=== PATIENT | female | born 1970 | race Caucasian/White ===

== ENCOUNTER 2018-10-27 16:48 | Inpatient (IN) | payer OTHER ==
[2018-10-27 19:10] VITALS: BMI 32.8
--- NOTE | 2018-10-27 21:57 | HP ---
CIWA Score - Admission Criteria [facility] Guidelines: Admission for Medically Managed Detox: Requires at least one of the followin. CIWA greater than 12 2. Seizures within the past 24 hours 3. Delirium tremens within the past 24 hours 4. Hallucinations within the past 24 hours 5. Acute intervention needed for co occurring medical disorder 6. Acute intervention needed for co occurring psychiatric disorder 7. Severe withdrawal that cannot be handled at a lower level of care (continued vomiting, continued diarrhea, abnormal vital signs) requiring intravenous medication and/or fluids 8. Admission ROS [facility] - [facility] Chief Complaint: SEEKING INPATIENT REHAB SERVICES TO MAINTAIN SOBRIETY History of Present Illness: 48 Y.O. FEMALE WITH HX/O ALCOHOLISM HERE FOR INAPTIENT REHAB SERVICES. tHIS IS CLIENTS FIRST ADMISSION HERE. SHE ALSO REPORTS THIS HER FIRST INAPTIENT DRUG TXMENT. SHE IS REFERRED BY HER MENTAL HEALTH COUNSELOR FOR BINGE DRINKING. STATES LAST DRINK WAS 4 DAYS AGO AFTER A 5 DAY BINGE DRINKING PERIOD. SHE ATTENDS AA AND REPORTS SHE BINGE DRINKS 3 TO 4 DAY STRAIGHT ON A MONTHLY BASIS. SHE DENIES HX/O SI/HI, AVH, SEIZURE D/O. PMHX- DEPRESSED, DM, GASTRIC BYPASS 2013, Exam Limitations: No Limitations - Ebola screening Have you traveled outside of the country in the last 21 days: No Have you had contact with anyone from an Ebola affected area: No Have you been sick,other than usual withdrawal symptoms: No Do you have a fever: No - Review of Systems Constitutional: Changes in sleep EENT: reports: No Symptoms Reported Respiratory: reports: No Symptoms reported Cardiac: reports: No Symptoms Reported GI: reports: Nausea, Poor Appetite, Poor Fluid Intake : reports: No Symptoms Reported Musculoskeletal: reports: No Symptoms Reported Integumentary: reports: No Symptoms Reported Neuro: reports: Headache Endocrine: reports: Other (HX/O DM) Hematology: reports: Anemia Psychiatric: reports: Orientated x3, Anxious, Depressed Other Systems: Reviewed and Negative Patient History - Patient Medical History Hx Anemia: Yes Hx Asthma: No Hx Chronic Obstructive Pulmonary Disease (COPD): No Hx Cancer: No Hx Cardiac Disorders: No Hx Congestive Heart Failure: No Hx Hypertension: No Hx Hypercholesterolemia: No Hx Pacemaker: No HX Cerebrovascular Accident: No Hx Seizures: No Hx Dementia: No Hx Diabetes: Yes (NOT ON MEDS) Hx Gastrointestinal Disorders: No Hx Liver Disease: No Hx Genitourinary Disorders: No Hx Sexually Transmitted Disorders: No Hx Renal Disease (ESRD): No Hx Thyroid Disease: No Hx Human Immunodeficiency Virus (HIV): No Hx Hepatitis C: No Hx Depression: Yes Hx Suicide Attempt: No Hx Bipolar Disorder: No Hx Schizophrenia: No - Patient Surgical History Past Surgical History: Yes Hx Abdominal Surgery: Yes (GASTRIC BYPASS) Hx Section: Yes (2008) Anesthesia Reaction: No - PPD History Previous Implant?: Yes Documented Results: Negative w/o proof Implanted On Prior R Admission?: No PPD to be Administered?: Yes - Reproductive History Patient is a Female of Child Bearing Age (11 -55 yrs old): Yes LMP comment: LMP GREATER THAN A YEAR Patient : No ([facility] [place]) - Smoking Cessation Smoking history: Former smoker Have you smoked in the past 12 months: No Aproximately how many cigarettes per day: 40 If you are a former smoker, when did you quit?: 6 YEARS AGO Cigars Per Day: 0 Hx Chewing Tobacco Use: No Initiated information on smoking cessation: No - Substance & Tx. History Hx Alcohol Use: Yes Hx Substance Use: Yes Substance Use Type: Alcohol Hx Substance Use Treatment: Yes (DEN[facility]) - Substances Abused WINE Route: Oral Frequency: 1-3 times last 30 days (DRINKS ATLEAST 4 DAYS STRAIGHT A MONTH) Amount used: 2- 1.5 LITERS Age of first use: 43 Date of Last Use: 10/24/18 Family Disease History - Family Disease History Family Disease History: Heart Disease: Father (RECOVERING ALCOHOLIC), CA: Sister ( 44 Y.O. TO L[place]), Other: Father, Mother (ALIVE HEALTHY) Admission Physical Exam S - Vital Signs Vital Signs: Vital Signs - 24 hr 10/27/18 19:04 Temperature 98.8 F Pulse Rate 108 H Respiratory 18 Rate Blood Pressure 134/92 - Physical General Appearance: Yes: Appropriately Dressed, Sweating (FLUSHED), Anxious HEENTM: Yes: EOMI, Normocephalic, Normal Voice, JEREMIAS, Pharynx Normal, Other ( FALSE TEETH) Respiratory: Yes: Chest Non-Tender, Lungs Clear, Normal Breath Sounds, No Respiratory Distress, No Accessory Muscle Use Neck: Yes: No masses,lesions,Nodules, Supple, Trachea in good position Breast: Yes: Breast Exam Deferred Cardiology: Yes: Regular Rhythm, S1, S2, Tachycardia Abdominal: Yes: Non Tender, Protuberent Genitourinary: Yes: Within Normal Limits, Other (NO C/O OFFERED) Back: Yes: Normal Inspection Musculoskeletal: Yes: full range of Motion, Gait Steady Extremities: Yes: Normal Capillary Refill, Normal Range of Motion, Non-Tender Neurological: Yes: gang pusher II-XII NML intact, Fully Oriented, Alert, Motor Strength 5/5, Depressed Affect Integumentary: Yes: Dry, Warm (FLUSHED) Lymphatic: Yes: Within Normal Limits - Diagnostic (1) Uncomplicated alcohol dependence Current Visit: Yes Status: Acute (2) History of diabetes mellitus Current Visit: Yes Status: Chronic (3) Depressed affect Current Visit: Yes Status: Acute (4) Substance induced mood disorder Current Visit: Yes Status: Suspected (5) History of anemia Current Visit: Yes Status: Chronic (6) Former smoker, stopped smoking many years ago Current Visit: Yes Status: Chronic Cleared for Admission [facility] - Detox or Rehab Detox Regimen/Protocol: Not Applicable Claeared for Rehab Admission: Yes [facility] Breath Alcohol Content Breath Alcohol Content: 0 Urine Pregancy Test - Result Urine Test Results: Negative- NO Line Present Urine Drug Screen - Results Drug Screen Negative: Yes Inpatient Rehab Admission - Initial Determination Are CD services needed?: Yes Free of communicable disease: Yes Not in need of hospitalization: Yes - Rehab Admission Criteria Previous failed treatment: Yes Poor recovery environment: Yes Comorbidities: Yes Lacks judgement: No Patient is meeting Inpatient Rehab admission criteria:: Yes
[2018-10-27] MEDS ORDERED: ACETAMINOPHEN 325 MG TABLET (FP) PO PRN (22:14)
[2018-10-27] MEDS ORDERED: LOPERAMIDE HCL 2 MG CAPSULE PO PRN (22:14)
[2018-10-27] MEDS ORDERED: MAGNESIUM HYDROX 2400MG/30ML ORAL SUSPENSION 30 ML CUP PO PRN (22:14)
[2018-10-27] MEDS ORDERED: IBUPROFEN 400 MG TABLET (FP) PO PRN (22:14)
[2018-10-27] MEDS ORDERED: MAG HYDROX/AL HYDROX/SIMETH 30 ML UNIT-DOSE CUP PO PRN (22:14)
[2018-10-27] MEDS ORDERED: MAGNESIUM CITRATE 300 ML BOTTLE PO PRN (22:14)
[2018-10-27] MEDS ORDERED: MENTHOL/PHENOL 1 EACH UD MM PRN (22:14)
[2018-10-27] MEDS ORDERED: guaiFENesin/D-METHORPHAN HB 10 ML UNIT-DOSE CUPS PO PRN (22:14)
[2018-10-27] MEDS ORDERED: P-EPHED 60MG/TRIPROLIDI 2.5MG TABLET PO PRN (22:14)
[2018-10-27] MEDS ORDERED: cloNIDine HCL 0.1 MG TABLET PO ONE (23:11)
[2018-10-27] MEDS ORDERED: ONDANSETRON *ODT* 4 MG TABLET SL PRN (23:11)
[2018-10-28] MEDS ORDERED: TUBERCULIN PPD 5 TU/0.1ML VIAL ID ONE (01:07)
[2018-10-28] MEDS: MELATONIN 5 MG TABLETS PO PRN ×2 (01:11→21:17)
[2018-10-28] MEDS: hydrOXYzine PAMOATE 50 MG CAPSULE (FP) PO PRN ×2 (01:11→06:49)
[2018-10-28 02:14] LABS: URINE APPEARANCE CLOUDY; URINE BILIRUBIN NEGATIVE (<2.0 mg/dL); URINE COLOR AMBER; URINE GLUCOSE (UA) 1+ (NEGATIVE); URINE KETONE NEGATIVE (NEGATIVE); URINE LEUK ESTERASE 1+ (NEGATIVE); URINE NITRITE NEGATIVE (NEGATIVE); URINE PROTEIN 1+ (NEGATIVE); URINE UROBILINOGEN 4.0 E.U/dl mg/dL (0.2-1.0)
[2018-10-28 02:26] LABS: EPI CELLS FEW /HPF (FEW); URINE BACTERIA RARE /hpf (NONE SEEN); URINE HYALINE CAST 7 /lpf; URINE MUCUS MANY
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
[2018-10-28] MEDS: VENLAFAXINE HCL 150 MG E.R. CAPSULE PO SCH (10:12)
[2018-10-28] MEDS: PANTOPRAZOLE 20 MG TABLET (FP) PO SCH (10:12)
[2018-10-28] MEDS: PRENATAL VITAMINS W/ FOLIC ACID TABLET (FP) PO SCH (10:12)
[2018-10-28] MEDS: VENLAFAXINE HCL 75 MG E.R. CAPSULES (FP) PO SCH (10:12)
[2018-10-28] MEDS: NALTREXONE HCL 50 MG TABLET PO SCH (12:35)
[2018-10-28 12:37] LABS: HEMATOCRIT 41.5 % (32.4-45.2); HEMOGLOBIN 14.3 GM/dL (10.7-15.3); MCH 30.7 pg (25.7-33.7); MCHC 34.4 g/dl (32.0-36.0); MEAN CELL VOLUME 89.4 fl (80-96); MEAN PLT VOLUME 8.2 fl (7.5-11.1); PLATELET COUNT 311 K/MM3 (134-434); RBC 4.64 M/mm3 (3.60-5.2); RDW 13.6 % (11.6-15.6)
[2018-10-28 12:43] LABS: ALBUMIN 3.6 g/dl (3.4-5.0); ALK PHOS 147 U/L (45-117); ANION GAP 9 MMOL/L (8-16); BILIRUBIN,TOTAL 0.4 mg/dL (0.2-1); BLOOD UREA NITROGEN 17 mg/dL (7-18); CALCIUM 8.7 mg/dL (8.5-10.1); CHLORIDE 107 mmol/L (98-107); CO2 25 mmol/L (21-32); CREATININE 0.8 mg/dL (0.55-1.3); GLUCOSE,RANDOM 105 mg/dL (74-106); SGOT/AST 32 U/L (15-37); SGPT/ALT 56 U/L (13-61); SODIUM 141 mmol/L (136-145); TOT PROT 7.3 g/dl (6.4-8.2)
[2018-10-28] MEDS: THIAMINE HCL 100 MG TABLET (FP) PO SCH (21:15)
[2018-10-28] MEDS: SUVOREXANT 10 MG TABLET PO SCH (21:16)
[2018-10-29] MEDS: VENLAFAXINE HCL 150 MG E.R. CAPSULE PO SCH (10:10)
[2018-10-29] MEDS: PRENATAL VITAMINS W/ FOLIC ACID TABLET (FP) PO SCH (10:10)
[2018-10-29] MEDS: PANTOPRAZOLE 20 MG TABLET (FP) PO SCH (10:10)
[2018-10-29] MEDS: VENLAFAXINE HCL 75 MG E.R. CAPSULES (FP) PO SCH (10:11)
[2018-10-29] MEDS: NALTREXONE HCL 50 MG TABLET PO SCH (10:13)
--- NOTE | 2018-10-29 16:54 | EKG ---
Test Reason : Blood Pressure : / mmHG Vent. Rate : 085 BPM Atrial Rate : 085 BPM P-R Int : 164 ms QRS Dur : 084 ms QT Int : 382 ms P-R-T Axes : 058 -08 022 degrees QTc Int : 454 ms NORMAL SINUS RHYTHM POSSIBLE INFERIOR INFARCT , AGE UNDETERMINED ABNORMAL ECG NO PREVIOUS ECGS AVAILABLE Confirmed by Hodan Rondon ([id number]) on 10/29/2018 4:54:49 PM Referred By: Confirmed By:Hodan Rondon
[2018-10-29] MEDS: SHAROBEL PO SCH (18:49)
[2018-10-29] MEDS: THIAMINE HCL 100 MG TABLET (FP) PO SCH (21:33)
[2018-10-29] MEDS: SUVOREXANT 10 MG TABLET PO SCH (21:34)
[2018-10-29] MEDS: MELATONIN 5 MG TABLETS PO PRN (21:34)
[2018-10-30] MEDS: VENLAFAXINE HCL 150 MG E.R. CAPSULE PO SCH (09:34)
[2018-10-30] MEDS: VENLAFAXINE HCL 75 MG E.R. CAPSULES (FP) PO SCH (09:34)
[2018-10-30] MEDS: PRENATAL VITAMINS W/ FOLIC ACID TABLET (FP) PO SCH (09:34)
[2018-10-30] MEDS: PANTOPRAZOLE 20 MG TABLET (FP) PO SCH (09:35)
[2018-10-30] MEDS: NALTREXONE HCL 50 MG TABLET PO SCH (09:35)
[2018-10-30] MEDS: SHAROBEL PO SCH (09:36)
[2018-10-30] MEDS: THIAMINE HCL 100 MG TABLET (FP) PO SCH (21:33)
[2018-10-30] MEDS: SUVOREXANT 10 MG TABLET PO SCH (21:34)
[2018-10-30] MEDS: MELATONIN 5 MG TABLETS PO PRN (21:34)
[2018-10-31] MEDS: hydrOXYzine PAMOATE 50 MG CAPSULE (FP) PO PRN (01:45)
[2018-10-31 07:21] VITALS: BP 138/93; PULSE 85; TEMP 97.8
[2018-10-31] MEDS ORDERED: PT OWN MED DRAWER 7, Y5N ONE ×2 (08:59→09:39)
[2018-10-31] MEDS: PANTOPRAZOLE 20 MG TABLET (FP) PO SCH (09:37)
[2018-10-31] MEDS: NALTREXONE HCL 50 MG TABLET PO SCH (09:38)
[2018-10-31] MEDS: PRENATAL VITAMINS W/ FOLIC ACID TABLET (FP) PO SCH (09:38)
[2018-10-31] MEDS: VENLAFAXINE HCL 75 MG E.R. CAPSULES (FP) PO SCH (09:38)
[2018-10-31] MEDS: VENLAFAXINE HCL 150 MG E.R. CAPSULE PO SCH (09:38)
[2018-10-31] MEDS: SHAROBEL PO SCH (09:39)
--- NOTE | 2018-10-31 15:10 | PN ---
[facility] Progress Note Note: REHAB DISCHARGE NOTE: CALLED TO REPORT THAT PT DECLINED TO CONTINUE REHAB TREATMENT FOR PERSONAL REASONS STATING "VACATION IS OVER AND I WANT TO GET BACK TO REALITY" PER NURSE. HOWEVER, I SAW PT WHO REPORTS SHE IS GOING BACK TO WORK AND TO HER 12 YEAR OLD AND WOULD LIKE TO CONNECT HERSELF TO A SPONSOR WHEN SHE GETS OUT AND GO TO AA AND AFTERCARE OPD. PT APPEARED TO HAVE SOME INSIGHTS TO HER PROBLEM BUT ADMITS SHE IS GOING TO NEED HELP TO ACHIEVE HER GOALS. PT ME WITH HER COUNSELOR AND HAS BEEN REFERRED TO [facility] AND 12 STEPS MEETINGS. PT REPORTS SHE HAS A PCP DR. ARIELLE JOHNSTON AT [place], [place]. PH:[phone]. PT REPORTS SHE HAS ALL HER MEDICATIONS IN SECURITY AND HAS NO NEED FOR COURTESY RX. Vital Signs 10/31/18 07:21 Temperature 97.8 F Pulse Rate 85 Respiratory 18 Rate Blood Pressure 138/93 Laboratory Tests 10/28/18 10/28/18 10/28/18 00:30 06:51 10:59 WBC 8.0 RBC 4.64 Hgb 14.3 Hct 41.5 MCV 89.4 MCH 30.7 MCHC 34.4 RDW 13.6 Plt Count 311 MPV 8.2 Sodium Potassium Chloride Carbon Dioxide Anion Gap BUN Creatinine Creat Clearance w eGFR POC Glucometer 104 Random Glucose Calcium Total Bilirubin AST ALT Alkaline Phosphatase Total Protein Albumin Urine Color [place] Urine Appearance Cloudy Urine pH 5.0 Ur Specific [place] 1.024 Urine Protein 1+ H Urine Glucose (UA) 1+ H Urine Ketones Negative Urine Blood Negative Urine Nitrite Negative Urine Bilirubin Negative Urine Urobilinogen 4.0 e.u/dl H Ur Leukocyte Esterase 1+ H Urine WBC (Auto) 4 Urine RBC (Auto) <1 Ur Epithelial Cells Few Urine Bacteria Rare Hyaline Casts 7 Urine Mucus Many RPR Titer 10/28/18 10/28/18 10/29/18 10:59 10:59 06:59 WBC RBC Hgb Hct MCV MCH MCHC RDW Plt Count MPV Sodium 141 Potassium 4.0 Chloride 107 Carbon Dioxide 25 Anion Gap 9 BUN 17 Creatinine 0.8 Creat Clearance w eGFR > 60 POC Glucometer 92 Random Glucose 105 Calcium 8.7 Total Bilirubin 0.4 AST 32 ALT 56 Alkaline Phosphatase 147 H Total Protein 7.3 Albumin 3.6 Urine Color Urine Appearance Urine pH Ur Specific [place] Urine Protein Urine Glucose (UA) Urine Ketones Urine Blood Urine Nitrite Urine Bilirubin Urine Urobilinogen Ur Leukocyte Esterase Urine WBC (Auto) Urine RBC (Auto) Ur Epithelial Cells Urine Bacteria Hyaline Casts Urine Mucus RPR Titer Nonreactive 10/31/18 06:33 WBC RBC Hgb Hct MCV MCH MCHC RDW Plt Count MPV Sodium Potassium Chloride Carbon Dioxide Anion Gap BUN Creatinine Creat Clearance w eGFR POC Glucometer 90 Random Glucose Calcium Total Bilirubin AST ALT Alkaline Phosphatase Total Protein Albumin Urine Color Urine Appearance Urine pH Ur Specific [place] Urine Protein Urine Glucose (UA) Urine Ketones Urine Blood Urine Nitrite Urine Bilirubin Urine Urobilinogen Ur Leukocyte Esterase Urine WBC (Auto) Urine RBC (Auto) Ur Epithelial Cells Urine Bacteria Hyaline Casts Urine Mucus RPR Titer NAD MEDICALLY STABLE PLAN:FOLLOW UP AT [facility] FOR CD AFTERCARE ON 11/01/18 RECOMMENDED FOLLOW WITH WITH YOUR PCP ABOVE FOR MEDICAL MANAGEMENT WITHIN 1-2 WEEKS AFTER DISCHARGE
== END 2018-10-31 10:42 | disposition left against medical advice (07) | DRG 894 ==
LOC: YASAS 16:48 → Y3E 22:29
PROVIDERS: ADMIT Neuromusculoskeletal Medicine & OMM; ATTEND Neuromusculoskeletal Medicine & OMM
PROC: HZ2ZZZZ Detoxification Services for Substance Abuse Treatment (ICD-10-PCS; principal; 2018-10-27)
DX: F10.230 Alcohol dependence with withdrawal, uncomplicated (principal); F19.24 Other psychoactive substance dependence with psychoactive substance-induced mood disorder; F32.9 Major depressive disorder, single episode, unspecified; R00.0 Tachycardia, unspecified; Z87.891 Personal history of nicotine dependence; Z98.84 Bariatric surgery status; Z86.39 Personal history of other endocrine, nutritional and metabolic disease
CPT/HCPCS: 36415; 80053; 81003; 81015; 82962; 85027; 86593; 93005; 93010; J0735